=== PATIENT | male | born 1970 | race Caucasian/White ===

== ENCOUNTER 2016-08-09 12:54 | Emergency (ER) | payer OTHER ==
--- NOTE | 2016-08-09 13:49 | DIAGNOSTIC IMAGING REPORT ---
PROCEDURE: CT HEAD WITHOUT CONTRAST INDICATION: Headache, initial encounter. TECHNIQUE: Noncontrast axial images with sagittal and coronal reformations. COMPARISON: None. FINDINGS: Sulci, ventricular system, and brain parenchyma are normal. No evidence of acute intracranial process. Mild to moderate ethmoid sinus disease. Mastoids are clear. IMPRESSION: 1. No acute intracranial abnormality 2. Mild to moderate ethmoid sinus disease 3. Findings discussed with Karin Hodges at 01:[address] Time
--- NOTE | 2016-08-09 13:49 | DIAGNOSTIC IMAGING REPORT ---
PROCEDURE: CT HEAD WITHOUT CONTRAST INDICATION: Headache, initial encounter. TECHNIQUE: Noncontrast axial images with sagittal and coronal reformations. COMPARISON: None. FINDINGS: Sulci, ventricular system, and brain parenchyma are normal. No evidence of acute intracranial process. Mild to moderate ethmoid sinus disease. Mastoids are clear. IMPRESSION: 1. No acute intracranial abnormality 2. Mild to moderate ethmoid sinus disease 3. Findings discussed with Karin Hodges at 01:37 p.m.[facility] Time
--- NOTE | 2016-08-09 14:48 | ED ORDER SUMMARY ---
..... Patient: BELEM JOLLY OrderSheet [facility] VisitID: [id number] [address] [place] [address] 46y, M Registration Date/Time: 08/09/2016 ORDER SHEET Weight: 81.6 kg (stated) Allergies: None GENERAL ORDERS: CT Head wo Cont Urgent (13:15 08/09/2016 HBivens A.R.N.P.) (Ack 13:16 CAIOoerarnoldo) (13:27 JBoardley R.N.) CBC w Diff Urgent (13:15 08/09/2016 HBivens A.R.N.P.) (Ack 13:16 CAIOoerner) (14:35 JBoardley R.N.) CMP Urgent (13:15 08/09/2016 HBivens A.R.N.P.) (Ack 13:16 CAIOoejluis) (14:35 JBoardley R.N.) MEDICATION ORDERS: IV FLUIDS: Reglan IV 10 mg (NOW) (13:14 08/09/2016 HBivens A.R.N.P.) (Ack 13:17 RMarsden R.N.) (13:45 RMarsden R.N.) Toradol IV 30 mg (NOW) (13:15 08/09/2016 HBivens A.R.N.P.) (Ack 13:17 RMarsden R.N.) (13:47 RMarsden R.N.) IV Saline Lock (13:15 08/09/2016 HBivens A.R.N.P.) (Ack 13:17 RMarsden R.N.) (13:43 RMarsden R.N.) Benadryl IV 25 mg (NOW) (13:16 08/09/2016 HBivens A.R.N.P.) (Ack 13:17 RMarsden R.N.) (13:53 RMarsden R.N.) ORDER SHEET NOTES: [Electronically signed by Sakshi Delgado R.N. (15:19 08/09/2016)] [Electronically signed by Karin Hodges.R.N.PQuinten (16:20 08/09/2016)] [Electronically locked/signed by Sakshi Delgado R.N. (15:19 08/09/2016)]
--- NOTE | 2016-08-09 14:48 | ED NURSING NOTES ---
Clinical Report - Nurses [facility] [place] [address] 08/09/2016 12:58 Patient: BELEM JOLLY TRIAGE Triage time 13:02. Acuity: LEVEL 4. Chief Complaint: MIGRAINE HEADACHE. 13:08 08/09/16. Alert. No acute distress. SEPSIS SCREEN: Sepsis Screen. Negative (no infection suspected/documented). BENITEZ COMA SCORE: [place] Coma Scale: 15- eyes open spontaneously (4); best verbal response- oriented x 4 (5); best motor response- obeys commands (6). --13:08 Sakshi Delgado R.N. 13:03 08/09/16. BP: 128/77. HR: 82. RR: 15. O2 saturation: 99% on room air. Temp: 97.7 F. Pain level now: 01/19. --13:08 Sakshi Delgado R.N. Weight: 81.6 kg stated. Height/Length: 76 inches Per Patient. BMI: 21.9. --14:35 Tor Perez R.N. Medications Excedrin Migraine Oral. --13:04 Sakshi Delgado R.N. Allergies None. --15:05 Sakshi Delgado R.N. History Historian: patient. This started 5 days ago. Onset. (last ). ( pt states "I've had a couple nights when I'm almost in tears from the pain."). He has had nausea. No vomiting or fever. Treatment [employer]: (excedrin). PAST MEDICAL HX: Immunizations: status is unknown. SOCIAL HX: Light tobacco smoker (cigarette)- less than 1/2 a pack per day. No alcohol use or drug use. FALL RISK ASSESSMENT: Fall risk assessment completed. No fall risk identified. NUTRITIONAL RISK ASSESSMENT: The nutritional risk assessment revealed no deficiencies. FUNCTIONAL ASSESSMENT: Functional assessment: no impairments noted. LEARNING NEEDS ASSESSMENT: The learning needs assessment revealed no barriers. SKIN INTEGRITY ASSESSMENT: Skin integrity risk assessment completed. No skin integrity risk identified. --13:08 Sakshi Delgado R.N. PROBLEMS: no known problems. ADDITIONAL SURGERIES: Hand surgery. --13:05 Sakshi Delgado R.N. Interventions ID band on patient. To treatment room. --13:08 Sakshi Delgado R.N. PHYSICAL ASSESSMENT 13:08/09/16. Ambulatory to room. GENERAL / NEURO / PSYCH: Alert. Oriented X 4. Appears in no acute distress. RESPIRATORY: Respirations not labored. CVS: Capillary refill less than 2 seconds. SKIN: Skin is warm and dry. --13: Sakshi Delgado R.N. NURSING PROGRESS NOTES 13:08/09/16. Patient gowned. Lights dimmed. Two patient identifiers checked. Call light placed in reach. Side rails up x 1. Bed placed in lowest position. Brakes of bed on. Patient ready for evaluation- chart flagged and notification provided. --13:09 Sakshi Delgado R.N. 13:43 08/09/2016 Site #1 started via IV in the left forearm with an 20g angiocath; one attempt. Blood drawn: rainbow set. Labeled in the presence of the patient and sent to the lab. Saline lock flushed with 5 mL saline. --13:43 Sakshi Delgado R.N. 13:44 08/09/2016 Reglan (Metoclopramide HCl) IVP 10 mg given over 1 minute(s) via site #1. Allergies verified and confirmed 5 rights. IV patency established. IV site checked: no pain, redness, or swelling. IV flushed thoroughly pre- and post-medication administration. IVP given by RN. --13:44 Sakshi Delgado R.N. 13:47 08/09/2016 Toradol IVP 30 mg given over 1 minute(s) via site #1. Allergies verified and confirmed 5 rights. IV patency established. IV site checked: no pain, redness, or swelling. IV flushed thoroughly pre- and post-medication administration. IVP given by RN. --13:47 Sakshi Delgado R.N. 13:53 08/09/2016 Benadryl (DiphenhydrAMINE HCl) IVP 25 mg given over 1 minute(s) via site #1. Sedative warning given to the patient. IV patency established. IV site checked: no pain, redness, or swelling. IV flushed thoroughly pre- and post-medication administration. IVP given by RN. --13:53 Sakshi Delgado R.N. 13:59 08/09/16. Patient ID band checked for patient name and birthdate: patient confirmed. Blood samples drawn from the left forearm with Vacutainer by nurse and sent to lab: rainbow set. Line flushed with 5 mL normal saline post blood draw. Two patient identifiers checked. Call light placed in reach. Side rails up x 1. Bed placed in lowest position. Brakes of bed on. Patient informed about reason for wait and about plan of care. --13:59 Sakshi Delgado R.N. 14:06 08/09/16. --14:06 Sakshi Delgado R.N. 14:05 08/09/16. Pain level now: 09/19. Additional comments: pt states the medication "took the edge off". --14:06 Sakshi Delgado R.N. 14:36 08/09/16. Reassessment after medication administered. He reports no complaints, he is calm and resting quietly and he has had no adverse reaction. Overall patient status is improved- he states feels better. --14:36 Tor Perez R.N. 14:37 08/09/16. --14:37 Tor Perez R.N. 14:36 08/09/16. BP: 105/68. HR: 64. RR: 16. O2 saturation: 99% on room air. Pain level now: 08/19. --14:37 Tor Perez R.N. DISPOSITION / DISCHARGE 14:58 08/09/2016 Site #1 removed upon discharge. Catheter intact. Bandaid applied. --15:03 Sakshi Delgado R.N. 15:01. Departure time: 15:01. Condition at departure: improved. The goals identified in the patient's plan of care were met. Discharge instructions provided and reviewed with the patient. Reviewed medication(s). Treatments reviewed. Work note given. Patient verbalized understanding. Written instructions provided in Spanish. The patient was discharged by the nurse practitioner. He was discharged home. --15:04 Sakshi Delgado R.N. 15:01 08/09/16. BP: 101/64. HR: 60. RR: 14. O2 saturation: 100%. Temp: deferred. Pain level now: 08/19. --15:04 Sakshi Delgado R.N. Locked/Released at 08/09/2016 15:19 by Sakshi Delgado R.N.
--- NOTE | 2016-08-09 14:48 | ED CLINICAL REPORT ---
Clinical Report - Physicians/Mid Levels [facility] [address] [place] [address] 08/09/2016 12:58 Patient: BELEM JOLLY Time Seen: 13:08; upon arrival, initial patient contact, initial documentation, patient care assumed. Arrived- By private vehicle. Historian- patient. HISTORY OF PRESENT ILLNESS Is still present. Chief Complaint: HEADACHE and MIGRAINE HEADACHE. This started about 4 days ago. It was abrupt in onset and has been constant. It is described as "pain" and diffuse and says it is his whole head and worse in the front. No neck pain. Not located in the facial region. At its maximum, severity described as moderate. When seen in the E.D., severity described as moderate. Modifying factors: worsened by bright light; relieved by nothing. The patient has had blurred vision and photophobia. No preceding symptoms, associated nausea, numbness, weakness or vomiting. No recent travel. Similar symptoms previously: None. Recent medical care: Not recently seen/assessed. REVIEW OF SYSTEMS No fever, sinus pressure, ear pain, sore throat or head injury. No cough. All systems otherwise negative, except as recorded above. PAST HISTORY Negative. See nurses notes. ADDITIONAL SURGERIES: Hand surgery. --13:05 Sakshi Delgado R.N. SOCIAL HISTORY Light tobacco smoker. No alcohol use or drug use. No recent travel. Is a local resident. FAMILY HISTORY Negative. ADDITIONAL NOTES The nursing notes have been reviewed with agreement regarding the chief complaint, HPI, ROS, PMH and patient medications and allergies. PHYSICAL EXAM Vital Signs: 08/09/2016 13:03 BP: 128/77. HR: 82. RR: 15. O2 saturation: 99%. Temp: 97.7 F. Pain level now: 8/10. Have been reviewed as normal and appear to be correct. Appearance: Alert. No acute distress. Eyes: Pupils equal, round and reactive to light. Eyes normal inspection. ENT: Ears normal. Nose normal. Pharynx normal. Neck: Normal inspection. Neck supple. CVS: Normal heart rate and rhythm. Heart sounds normal. Pulses normal. Respiratory: No respiratory distress. Breath sounds normal. Back: Normal inspection. Skin: Skin warm and dry. Normal skin color. No rash. Normal skin turgor. Extremities: Extremities exhibit normal ROM. No lower extremity edema. Neuro: Oriented X 3. Alert. Mood/affect normal. Speech normal. Cranial nerves normal (as tested). No cerebellar findings. No motor deficit. No sensory deficit. LABS, X-RAYS, AND EKG CT Head: . (IMPRESSION: 1. No acute intracranial abnormality 2. Mild to moderate ethmoid sinus disease 3. Findings discussed with Karin Hodges at 01:37 p.m., [facility] Time Electronically Final signed by:Poncho Cuevas MD 08/09/2016 1:49:27 PM). The study was interpreted by the radiologist and discussed with the radiologist. Interpretation time: 1338. Laboratory Tests: CBC w Diff: (KASHIF: 08/09/2016 13:50) ( [facility] 08/09/[facility] 14:02) Final results Test Result Flag Units (Reference) WHITE BLOOD COUNT 9.8 K/uL (4.5-11.5) RED BLOOD COUNT 4.75 M/uL (4.50-5.90) HEMOGLOBIN 14.7 gm/dL (13.5-17.5) HEMATOCRIT 43.6 % (41.0-53.0) MEAN CELL VOLUME 92 fL (80-100) MEAN CORPUSCULAR HGB 31 pg (26-34) MEAN CORPUSCULAR HGB CONC 34 g/dL (31-37) RED CELL DISTRIBUTION WIDTH 12.7 % (11.6-14.8) PLATELET COUNT 256 K/uL (150-400) NEUTROPHIL % 68.3 % (50-75) LYMPH % 21.3 L % (25-40) MONO % 6.6 % (3-14) EOSINOPHIL % 3.3 % (0-4) BASOPHIL % 0.5 % (0-2) CMP: (KASHIF: 08/09/2016 13:50) ( [facility] 08/09/2016 14:23) Final results Test Result Flag Units (Reference) GLUCOSE 98 mg/dL (70-110) BUN 16 mg/dL (7-18) CREATININE 0.8 mg/dL (0.6-1.3) Estimated GFR >60 mL/min Estimated GFR- >60 mL/min Note: Persistent reduction over 3 months in eGFR<60 mL/min/1.73 m2 defines CKD. Patients with eGFR values>=60 mL/min/1.73 m2 may also have CKD if evidence ofpersistent proteinuria. Additional information may be foundat www.kidney.org. SODIUM 141 mmol/L (136-145) POTASSIUM 4.0 mmol/L (3.5-5.1) CHLORIDE 104 mmol/L (98-107) CARBON DIOXIDE 27 mmol/L (21-32) CALCIUM 9.3 mg/dL (8.5-10.1) TOTAL PROTEIN 7.3 g/dL (6.4-8.2) ALBUMIN 4.1 g/dL (3.3-5.0) BILIRUBIN, TOTAL 0.5 mg/dL (0.0-1.0) ALKALINE PHOSPHATASE 80 U/L (46-116) AST (SGOT) 19 U/L (15-37) ALT (SGPT) 29 U/L (12-78) . PROGRESS AND PROCEDURES Course of Care: 13:09 08/09/16. pt has brief darwin, nothing alarming, see report for full details. 08/09/2016 14:36 BP: 105/68. HR: 64. RR: 16. O2 saturation: 99%. Pain level now: 3/10. Vital Signs: have been reviewed as normal and appear to be correct. Patient counseled in person regarding the patient's stable condition, test results and diagnosis. 14:28. Differential Diagnosis: I considered migraine, cluster headache, subarachnoid hemorrhage, intracranial bleed, vascular malformation, cerebral aneurysm, vascular dissection, vasculitis, temporal arteritis, encephalitis, sinusitis, dental etiology, influenza, viral syndrome, carbon monoxide exposure, analgesic abuse, hypoglycemia and trigeminal neuralgia as a possible cause of headache in this patient. This is a partial list of diagnoses considered. Above considerations are based on history, physical exam, laboratory data and other information. Differential diagnosis was discussed with patient. Disposition: Discharged home in good and improved condition (14:47). Condition: good and stable. CLINICAL IMPRESSION Acute ethmoidal sinusitis Acute headache. INSTRUCTIONS Do not work today. Warnings: GENERAL WARNINGS: Return or contact your physician immediately if your condition worsens or changes unexpectedly, if not improving as expected, or if other problems arise. SPECIFICALLY, return if you develop vomiting, numbness, weakness, difficulty thinking, visual disturbances, fainting or extreme fatigue. Prescription Medications: Zofran 4 mg: Take 1 orally every six hours as needed for nausea/vomiting. Dispense ten (10). No refills. Substitution is permissible. Augmentin 875 mg: take 1 tablet orally every 12 hours for 10 days. No refill. Fioricet: Take 1-2 orally every 4 hours as needed for headache. Dispense twenty (20). No refills. Substitution is permissible. Follow-up: Follow up with your doctor in about five days even if well. Call for an appointment. Summary of care provided to patient. Understanding of the discharge instructions verbalized by patient. (Electronically signed by Karin Hodges A.R.N.P. 08/09/2016 16:20)
--- NOTE | 2016-08-09 14:48 | ED ORDER SUMMARY ---
..... Patient: BELEM JOLLY OrderSheet [facility] VisitID: [id number] [address] [place] [address] 46y, M Registration Date/Time: 08/09/2016 ORDER SHEET Weight: 81.6 kg (stated) Allergies: None GENERAL ORDERS: CT Head wo Cont Urgent (13:15 08/09/2016 HBivens A.R.N.P.) (Ack 13:16 CAIOoerarnoldo) (13:27 JBoardley R.N.) CBC w Diff Urgent (13:15 08/09/2016 HBivens A.R.N.P.) (Ack 13:16 CAIOoerner) (14:35 JBoardley R.N.) CMP Urgent (13:15 08/09/2016 HBivens A.R.N.P.) (Ack 13:16 CAIOoejluis) (14:35 JBoardley R.N.) MEDICATION ORDERS: IV FLUIDS: Reglan IV 10 mg (NOW) (13:14 08/09/2016 HBivens A.R.N.P.) (Ack 13:17 RMarsden R.N.) (13:45 RMarsden R.N.) Toradol IV 30 mg (NOW) (13:15 08/09/2016 HBivens A.R.N.P.) (Ack 13:17 RMarsden R.N.) (13:47 RMarsden R.N.) IV Saline Lock (13:15 08/09/2016 HBivens A.R.N.P.) (Ack 13:17 RMarsden R.N.) (13:43 RMarsden R.N.) Benadryl IV 25 mg (NOW) (13:16 08/09/2016 HBivens A.R.N.P.) (Ack 13:17 RMarsden R.N.) (13:53 RMarsden R.N.) ORDER SHEET NOTES: [Electronically signed by Sakshi Delgado R.N. (15:19 08/09/2016)] [Electronically signed by Karin Hodges.R.N.PQuinten (16:20 08/09/2016)] [Electronically locked/signed by Sakshi Delgado R.N. (15:19 08/09/2016)]
--- NOTE | 2016-08-09 16:20 | ED MAR SUMMARY ---
..... Medication Administration Record [facility] [address] [place] [address] Patient: BELEM JOLLY Visit ID: [id number] 46y, M Weight: 81.6 kg Height/Length: 76 in BMI: 21.9 ALLERGIES: None Given 13:44 08/09/2016 Sakshi Delgado, RQuintenN. Medication Administered: REGLAN [IVP] (METOCLOPRAMIDE HCL), Dose: 10 mg IVP over 1 minute(s), Site: #1 left forearm. Medication Ordered: Reglan IV 10 mg (NOW). Given 13:47 08/09/2016 Sakshi Delgado, RQuintenN. Medication Administered: TORADOL [IVP], Dose: 30 mg IVP over 1 minute(s), Site: #1 left forearm. Medication Ordered: Toradol IV 30 mg (NOW). Given 13:53 08/09/2016 Sakshi Delgado, R.N. Medication Administered: BENADRYL [IVP] (DIPHENHYDRAMINE HCL), Dose: 25 mg IVP over 1 minute(s), Site: #1 left forearm. Medication Ordered: Benadryl IV 25 mg (NOW).
--- NOTE | 2016-08-09 16:20 | ED MAR SUMMARY ---
..... Medication Administration Record [facility] [address] [place] [address] Patient: BELEM JOLLY Visit ID: [id number] 46y, M Weight: 81.6 kg Height/Length: 76 in BMI: 21.9 ALLERGIES: None Given 13:44 08/09/2016 Sakshi Delgado, RQuintenN. Medication Administered: REGLAN [IVP] (METOCLOPRAMIDE HCL), Dose: 10 mg IVP over 1 minute(s), Site: #1 left forearm. Medication Ordered: Reglan IV 10 mg (NOW). Given 13:47 08/09/2016 Sakshi Delgado, RQuintenN. Medication Administered: TORADOL [IVP], Dose: 30 mg IVP over 1 minute(s), Site: #1 left forearm. Medication Ordered: Toradol IV 30 mg (NOW). Given 13:53 08/09/2016 Sakshi Delgado, R.N. Medication Administered: BENADRYL [IVP] (DIPHENHYDRAMINE HCL), Dose: 25 mg IVP over 1 minute(s), Site: #1 left forearm. Medication Ordered: Benadryl IV 25 mg (NOW).
--- NOTE | 2016-08-09 16:20 | ED DISCHARGE INSTRUCTIONS ---
Patient: BELEM JOLLY General Instructions [facility] VisitID: [id number] [address] [place] [address] 46y, M Registration Date/Time: 08/09/2016 Acute ethmoidal sinusitis Acute headache. INSTRUCTIONS Do not work today. Warnings: GENERAL WARNINGS: Return or contact your physician immediately if your condition worsens or changes unexpectedly, if not improving as expected, or if other problems arise. SPECIFICALLY, return if you develop vomiting, numbness, weakness, difficulty thinking, visual disturbances, fainting or extreme fatigue. Prescription Medications: Zofran 4 mg: Take 1 orally every six hours as needed for nausea/vomiting. Dispense ten (10). No refills. Substitution is permissible. Augmentin 875 mg: take 1 tablet orally every 12 hours for 10 days. No refill. Fioricet: Take 1-2 orally every 4 hours as needed for headache. Dispense twenty (20). No refills. Substitution is permissible. Follow-up: Follow up with your doctor in about five days even if well. Call for an appointment. Summary of care provided to patient. Understanding of the discharge instructions verbalized by patient. ADDITIONAL INFORMATION Sinus Headache The sinuses are air-filled spaces within the bones of the face. They connect to the inside of the nose. Sinusitis is an inflammation of the tissue lining the sinus cavity. Sinus inflammation can occur during a cold or hay fever (allergies to pollens and other particles in the air) and cause symptoms of sinus congestion and fullness and perhaps a low-grade fever. An infection is usually present when there is also facial pain or headache. There may also be green or yellow drainage from the nose or into the back of the throat (postnasal drip). Antibiotics are often prescribed to treat this condition. Sinus headache may cause pain in different locations, depending on which sinuses are infected. There may be pain in the temples, forehead, top of the head, behind or around the eye, across the cheekbone, or into the upper teeth. You may find that changing your position, sitting upright or lying down, will bring some relief. Home Care: Drink plenty of water, hot tea, and other liquids to stay well hydrated. This thins the mucus and promotes sinus drainage. Apply heat to the painful areas of the face. Use a towel soaked in hot water. Or, engineer internship the shower and direct the hot spray onto your face. This is a good way to inhale warm water vapor and get heat on your face at the same time. (Cover your mouth and nose with your hands so you can still breathe as you do this.) Use a vaporizer with products such as Vicks VapoRub (contains menthol) at night. Suck on peppermint, menthol, or eucalyptus hard candies during the day. An expectorantcontaining guaifenesin (such as Robitussin) helps to thin the mucus and promote drainage from the sinuses. [id number] decongestantsmay be used unless a similar medicine was prescribed. Nasal sprays work the fastest. Use one that contains phenylephrine (Harpreet-Synephrine, Sinex, and others) or oxymetazoline (Afrin). First blow the nose gently to remove mucus, then apply the drops. Do not use these medicines more often than directed on the label or for more than3 days, or symptoms may worsen. You may also use tablets containing pseudoephedrine (Sudafed). Many sinus remedies combine ingredients, which may increase side effects. Read the labels or ask the pharmacist for help. [NOTE: Persons with high blood pressure should not use decongestants. They can raise blood pressure.] Antihistaminesare useful if allergies are a cause of your sinusitis. The mildest one is chlorpheniramine (available without a prescription). The dose for adults is 8-12 mg three times a day. [NOTE: Do not use chlorpheniramine if you have glaucoma or if you are a man with trouble urinating due to an enlarged prostate.] Claritin (loratidine) is an antihistamine that causes less drowsiness and is a good alternative for daytime use. When allergies are the cause for sinusitis, a saline nasal rinsemay give relief. Saline nasal rinse reduces swelling and clears excess mucus. This allows sinuses to drain. Prepackaged kits are available at most drugstores. These contain premixed salt packets and an irrigation device. If antibiotics have been prescribed to treat an acute sinus infection, talk to your doctor before using a nasal rinse to be sure it is safe for you. You may use acetaminophen (Tylenol) or ibuprofen (Motrin, Advil) to control pain, unless another pain medicine was prescribed. [NOTE: If you have chronic liver or kidney disease or ever had a stomach ulcer, talk with your doctor before using these medicines.] (Aspirin should never be used in anyone under 18 years of age who is ill with a fever. It may cause severe liver damage.) If antibiotics were given, finish the full course, even if you are feeling better after a few days. Follow Up with your doctor or this facility in one week or as instructed by our staff if not improving. Get Prompt Medical Attention if any of the following occur: Facial pain or headache becomes more severe Stiff neck Unusual drowsiness or confusion Swelling of the forehead or eyelids Vision problems including blurred or double vision Fever over 100.4 F (38.0 C) oral for more than3 days on antibiotics Bleeding from the nose or throat Seizure Headache [Unspecified] The cause of your headache today is not clear, but it does not appear to be the sign of any serious illness. Under stress, some people tense the muscles of their shoulder, neck and scalp without knowing it. If this condition lasts long enough, a TENSION HEADACHE can occur. A MIGRAINE HEADACHE is caused by changes in blood flow to the brain. A migraine attack may be triggered by emotional stress, hormone changes during the menstrual cycle, oral contraceptives, alcohol use, certain foods containing tyramine, eye strain, weather changes, missing meals, lack of sleep or oversleeping. Other causes of headache include a viral illness with high fever, head injury with concussion, sinus, ear or throat infection, dental pain and TMJ (jaw joint) pain. More serious but less common causes of headache include stroke, brain hemorrhage, brain tumor, meningitis and encephalitis. Home Care: If you were given pain medicine for this headache, do not drive yourself home. Arrange for a ride, instead. When you get home, try to sleep. You should feel much better when you wake up. Apply heat to the back of your neck to relieve neck muscle spasm. Migraine headaches may respond best to an ice pack on the forehead or at the base of the skull. If you are having nausea or vomiting, follow a light diet until your headache is relieved. If you have a migraine type headache, use sunglasses when in the daylight or around bright indoor lighting until symptoms improve. Bright glaring light can worsen this kind of headache. Follow Up with your doctor if the headache is not better within the next 24 hours. If you have frequent headaches you should discuss a treatment plan with your primary care doctor. By being aware of the earliest signs of headache, and starting treatment right away, you may be able to stop the pain yourself. Get Prompt Medical Attention if any of the following occur: Worsening of your head pain or no improvement within 24 hours Repeated vomiting (unable to keep liquids down) Fever of 100.4F (38C) or higher, or as directed by your healthcare provider Stiff neck Extreme drowsiness, confusion or fainting Dizziness, vertigo (dizziness with spinning sensation) Weakness of an arm or leg or one side of the face Difficulty with speech or vision Sinusitis [Abx Tx] The sinuses are air-filled spaces within the bones of the face. They connect to the inside of the nose. Sinusitis is an inflammation of the tissue lining the sinus cavity. Sinus inflammation can occur during a cold or hay-fever (allergies to pollens and other particles in the air) and cause symptoms of sinus congestion and fullness. A sinus infection causes fever, headache and facial pain. There is usually green or yellow drainage from the nose or into the back of the throat (post-nasal drip). Antibiotics are prescribed to treat this condition. Home Care: Drink plenty of water, hot tea, and other liquids to stay well hydrated. This thins the mucus and promotes sinus drainage. Apply heat to the painful areas of the face. Use a towel soaked in hot water. Or, engineer internship the shower and direct the hot spray onto your face. This is a good way to inhale warm water vapor and get heat on your face at the same time. (Cover your mouth and nose with your hands so you can still breathe as you do this.) Use a vaporizer with products such as Vicks VapoRub (contains menthol) at night. Suck on peppermint, menthol or eucalyptus hard candies during the day. An expectorant containing guaifenesin (such as Robitussin), helps to thin the mucus and promote drainage from the sinuses. Kreb-wkb-[id number] decongestants may be used unless a similar medicine was prescribed. Nasal sprays work the fastest. Use one that contains phenylephrine (Harpreet-synephrine, Sinex and others) or oxymetazoline (Afrin). First blow the nose gently to remove mucus, then apply the drops. Do not use these medicines more often than directed on the label or for more than three days or symptoms may worsen. You may also use tablets containing pseudoephedrine (Sudafed). Many sinus remedies combine ingredients, which may increase side effects. Read the labels or ask the pharmacist for help. NOTE: Persons with high blood pressure should not use decongestants. They can raise blood pressure. Antihistamines are useful if allergies are a cause of your sinusitis. The mildest one is chlorpheniramine (available without a prescription). The dose for adults is 8-12mg three times a day. [NOTE: Do not use chlorpheniramine if you have glaucoma or if you are a man with trouble urinating due to an enlarged prostate.] Claritin (loratidine) is an antihistamine that causes less drowsiness and is a good alternative for daytime use. Do not use nasal rinses or irrigation during an acute sinus infection, unless advised by your doctor. Rinsing may spread the infection to other sinuses. You may use acetaminophen (Tylenol) or ibuprofen (Motrin, Advil) to control pain, unless another pain medicine was prescribed. [ NOTE: If you have chronic liver or kidney disease or ever had a stomach ulcer, talk with your doctor before using these medicines.] (Aspirin should never be used in anyone under 18 years of age who is ill with a fever. It may cause severe liver damage.) Finish the full course, even if you are feeling better after a few days. Follow Up with your doctor or this facility in one week or as instructed by our staff if not improving. Get Prompt Medical Attention if any of the following occur: Facial pain or headache becomes more severe Stiff neck Unusual drowsiness or confusion, or not acting like your normal self Swelling of the forehead or eyelids Vision problems including blurred or double vision Fever of 100.4F (38C) or higher, or as directed by your healthcare provider Seizure Ondansetron Oral disintegrating tablet What is this medicine? ONDANSETRON (on YAMILA se dada) is used to treat nausea and vomiting caused by chemotherapy. It is also used to prevent or treat nausea and vomiting after surgery. How should I use this medicine? These tablets are made to dissolve in the mouth. Do not try to push the tablet through the foil backing. With dry hands, peel away the foil backing and gently remove the tablet. Place the tablet in the mouth and allow it to dissolve, then swallow. While you may take these tablets with water, it is not necessary to do so. Talk to your it architecture analyst regarding the use of this medicine in children. Special care may be needed. What side effects may I notice from receiving this medicine? Side effects that you should report to your doctor or health career portals teacher as soon as possible: allergic reactions like skin rash, itching or hives, swelling of the face, lips, or tongue breathing problems dizziness fast or irregular heartbeat feeling faint or lightheaded, falls fever and chills swelling of the hands and feet tightness in the chest Side effects that usually do not require medical attention (report to your doctor or health career portals teacher if they continue or are bothersome): constipation or diarrhea headache What may interact with this medicine? Do not take this medicine with any of the following medications: -apomorphine -cisapride -dofetilide -dronedarone -pimozide -thioridazine -ziprasidone This medicine may also interact with the following medications: -carbamazepine -phenytoin -rifampicin -tramadol -other medicines that prolong the QT interval (cause an abnormal heart rhythm) What if I miss a dose? If you miss a dose, take it as soon as you can. If it is almost time for your next dose, take only that dose. Do not take double or extra doses. Where should I keep my medicine? Keep out of the reach of children. Store between 2 and 30 degrees C (36 and 86 degrees F). Throw away any unused medicine after the expiration date. What should I tell my health care provider before I take this medicine? They need to know if you have any of these conditions: heart disease history of irregular heartbeat liver disease low levels of magnesium or potassium in the blood an unusual or allergic reaction to ondansetron, granisetron, other medicines, foods, dyes, or preservatives or trying to get breast-feeding What should I watch for while using this medicine? Check with your doctor or health career portals teacher as soon as you can if you have any sign of an allergic reaction. Amoxicillin Trihydrate, Clavulanate Potassium Oral tablet What is this medicine? AMOXICILLIN; CLAVULANIC ACID (a mox i RAJ in; MATTHEW dowling sarah ic id) is a penicillin antibiotic. It is used to treat certain kinds of bacterial infections. It will not work for colds, flu, or other viral infections. How should I use this medicine? Take this medicine by mouth with a full glass of water. Follow the directions on the prescription label. Take at the start of a meal. Do not crush or chew. If the tablet has a score line, you may cut it in half at the score line for easier swallowing. Take your medicine at regular intervals. Do not take your medicine more often than directed. Take all of your medicine as directed even if you think you are better. Do not skip doses or stop your medicine early. Talk to your it architecture analyst regarding the use of this medicine in children. Special care may be needed. What side effects may I notice from receiving this medicine? Side effects that you should report to your doctor or health career portals teacher as soon as possible: allergic reactions like skin rash, itching or hives, swelling of the face, lips, or tongue breathing problems dark urine fever or chills, sore throat redness, blistering, peeling or loosening of the skin, including inside the mouth seizures trouble passing urine or change in the amount of urine unusual bleeding, bruising unusually weak or tired white patches or sores in the mouth or throat Side effects that usually do not require medical attention (report to your doctor or health career portals teacher if they continue or are bothersome): diarrhea dizziness headache nausea, vomiting stomach upset vaginal or anal irritation What may interact with this medicine? allopurinol anticoagulants control pills methotrexate probenecid What if I miss a dose? If you miss a dose, take it as soon as you can. If it is almost time for your next dose, take only that dose. Do not take double or extra doses. Where should I keep my medicine? Keep out of the reach of children. Store at room temperature below 25 degrees C (77 degrees F). Keep container tightly closed. Throw away any unused medicine after the expiration date. What should I tell my health care provider before I take this medicine? They need to know if you have any of these conditions: bowel disease, like colitis kidney disease liver disease mononucleosis an unusual or allergic reaction to amoxicillin, penicillin, cephalosporin, other antibiotics, clavulanic acid, other medicines, foods, dyes, or preservatives or trying to get breast-feeding What should I watch for while using this medicine? Tell your doctor or health career portals teacher if your symptoms do not improve. Do not treat diarrhea with over the counter products. Contact your doctor if you have diarrhea that lasts more than 2 days or if it is severe and watery. If you have diabetes, you may get a false-positive result for sugar in your urine. Check with your doctor or health career portals teacher. control pills may not work properly while you are taking this medicine. Talk to your doctor about using an extra method of control. Butalbital, Acetaminophen, Caffeine Oral tablet What is this medicine? ACETAMINOPHEN; BUTALBITAL; CAFFEINE (a set a ALOK blossom fen; byoo JOAQUIN bi joaquin; KAF een) is a pain reliever. It is used to treat tension headaches. How should I use this medicine? Take this medicine by mouth with a full glass of water. Follow the directions on the prescription label. If the medicine upsets your stomach, take the medicine with food or milk. Do not take more than you are told to take. Talk to your it architecture analyst regarding the use of this medicine in children. Special care may be needed. What side effects may I notice from receiving this medicine? Side effects that you should report to your doctor or health career portals teacher as soon as possible: allergic reactions like skin rash, itching or hives, swelling of the face, lips, or tongue breathing problems confusion feeling faint or lightheaded, falls redness, blistering, peeling or loosening of the skin, including inside the mouth seizure stomach pain yellowing of the eyes or skin Side effects that usually do not require medical attention (report to your doctor or health career portals teacher if they continue or are bothersome): constipation nausea, vomiting What may interact with this medicine? alcohol or medicines that contain alcohol antidepressants, especially MAOIs like isocarboxazid, phenelzine, tranylcypromine, and selegiline antihistamines benzodiazepines carbamazepine isoniazid medicines for pain like pentazocine, buprenorphine, butorphanol, nalbuphine, tramadol, and propoxyphene muscle relaxants naltrexone phenobarbital, phenytoin, and fosphenytoin phenothiazines like perphenazine, thioridazine, chlorpromazine, mesoridazine, fluphenazine, prochlorperazine, promazine, and trifluoperazine voriconazole What if I miss a dose? If you miss a dose, take it as soon as you can. If it is almost time for your next dose, take only that dose. Do not take double or extra doses. Where should I keep my medicine? Keep out of the reach of children. This medicine can be abused. Keep your medicine in a safe place to protect it from theft. Do not share this medicine with anyone. Selling or giving away this medicine is dangerous and against the law. Store at room temperature between 15 and 30 degrees C (59 and 86 degrees F). Keep container tightly closed. Protect from light. Throw away any unused medicine after the expiration date. What should I tell my health care provider before I take this medicine? They need to know if you have any of these conditions: drink more than 3 alcohol-containing drinks per day drug abuse or addiction heart or circulation problems kidney disease or problems going to the bathroom liver disease lung disease, asthma, or breathing problems porphyria an unusual or allergic reaction to acetaminophen, butalbital or other barbiturates, caffeine, other medicines, foods, dyes, or preservatives or trying to get breast-feeding What should I watch for while using this medicine? Tell your doctor or health career portals teacher if your pain does not go away, if it gets worse, or if you have new or a different type of pain. You may develop tolerance to the medicine. Tolerance means that you will need a higher dose of the medicine for pain relief. Tolerance is normal and is expected if you take the medicine for a long time. Do not suddenly stop taking your medicine because you may develop a severe reaction. Your body becomes used to the medicine. This does NOT mean you are addicted. Addiction is a behavior related to getting and using a drug for a non-medical reason. If you have pain, you have a medical reason to take pain medicine. Your doctor will tell you how much medicine to take. If your doctor wants you to stop the medicine, the dose will be slowly lowered over time to avoid any side effects. You may get drowsy or dizzy when you first start taking the medicine or change doses. Do not drive, use machinery, or do anything that may be dangerous until you know how the medicine affects you. Stand or sit up slowly. Do not take other medicines that contain acetaminophen with this medicine. Always read labels carefully. If you have questions, ask your doctor or pharmacist. If you take too much acetaminophen get medical help right away. Too much acetaminophen can be very dangerous and cause liver damage. Even if you do not have symptoms, it is important to get help right away. You have been given the following additional information: Sinus Headache Headache, Unspecified Sinusitis, Abx Tx Ondansetron Oral disintegrating tablet Amoxicillin Trihydrate, Clavulanate Potassium Oral tablet Butalbital, Acetaminophen, Caffeine Oral tablet Do not work today. (Electronically signed by Karin Hodges A.R.N.P. 08/09/2016 16:20)
--- NOTE | 2016-08-09 16:20 | ED MED RECONCILIATION SUMMARY ---
Patient: BELEM JOLLY Medication Reconciliation Report [facility] VisitID: [id number] [address] [place] [address] 46y, M Registration Date/Time: 08/09/2016 Weight: 81.6 kg Height/Length: 76 in. BMI: 21.9 ALLERGIES: None The patient's Home Medications are listed below: THE FOLLOWING MEDICATIONS NEED TO BE RECONCILED: Excedrin Migraine Oral The source(s) of the original Home Medication information: Not obtained. The following Medications were given to the patient in the Emergency Department: Reglan [IVP] IVP 10 mg, administered: 08/09/2016 1:44:00 PM Toradol [IVP] IVP 30 mg, administered: 08/09/2016 1:47:00 PM Benadryl [IVP] IVP 25 mg, administered: 08/09/2016 1:53:00 PM The following Medications were prescribed to the patient: Zofran 4 mg: Take 1 orally every six hours as needed for nausea/vomiting. Dispense ten (10). No refills. Substitution is permissible. -- Karin Hodges, Arielle.R.N.P. Augmentin 875 mg: take 1 tablet orally every 12 hours for 10 days. No refill. -- Karin Hodges A.R.N.P. Fioricet: Take 1-2 orally every 4 hours as needed for headache. Dispense twenty (20). No refills. Substitution is permissible. -- Karin Hodges A.R.N.P.
--- NOTE | 2016-08-09 16:20 | ED MED RECONCILIATION SUMMARY ---
Patient: BELEM JOLLY Medication Reconciliation Report [facility] VisitID: [id number] [address] [place] [address] 46y, M Registration Date/Time: 08/09/2016 Weight: 81.6 kg Height/Length: 76 in. BMI: 21.9 ALLERGIES: None The patient's Home Medications are listed below: THE FOLLOWING MEDICATIONS NEED TO BE RECONCILED: Excedrin Migraine Oral The source(s) of the original Home Medication information: Not obtained. The following Medications were given to the patient in the Emergency Department: Reglan [IVP] IVP 10 mg, administered: 08/09/2016 1:44:00 PM Toradol [IVP] IVP 30 mg, administered: 08/09/2016 1:47:00 PM Benadryl [IVP] IVP 25 mg, administered: 08/09/2016 1:53:00 PM The following Medications were prescribed to the patient: Zofran 4 mg: Take 1 orally every six hours as needed for nausea/vomiting. Dispense ten (10). No refills. Substitution is permissible. -- Karin Hodges, Arielle.R.N.P. Augmentin 875 mg: take 1 tablet orally every 12 hours for 10 days. No refill. -- Karin Hodges A.R.N.P. Fioricet: Take 1-2 orally every 4 hours as needed for headache. Dispense twenty (20). No refills. Substitution is permissible. -- Karin Hodges A.R.N.P.
== END 2016-08-09 15:01 | disposition home or self-care (01) ==
LOC: ED SRH 12:54
DX: R51 Headache (principal); H53.149 Visual discomfort, unspecified; J01.20 Acute ethmoidal sinusitis, unspecified; F17.210 Nicotine dependence, cigarettes, uncomplicated
CPT/HCPCS: 90100; 95059